=== PATIENT | male | born 1965 | race African-American/Black ===

== ENCOUNTER 2020-02-20 18:03 | Emergency (ER) | payer MEDICAID ==
[~2020-02-20] VITALS: Ht 177.8 cm; Wt 89.0 kg
[2020-02-20] MEDS ORDERED: ALBUTEROL (0.083%) 2.5MG/3ML NEB HHN STA (23:05)
[2020-02-20] MEDS ORDERED: IPRATROPIUM BROMIDE (0.02%) 0.5MG/2.5ML NEB HHN STA (23:05)
[2020-02-20] MEDS ORDERED: PREDNISONE 20MG TABLET PO ONE (23:15)
[2020-02-21 01:15] VITALS: BP 154/79
== END 2020-02-21 01:15 | disposition home or self-care (01) ==
LOC: ER 18:14
DX: I10 Essential (primary) hypertension (principal); J20.9 Acute bronchitis, unspecified; J44.0 Chronic obstructive pulmonary disease with (acute) lower respiratory infection; B20 Human immunodeficiency virus [HIV] disease
CPT/HCPCS: 71045; 94640; 99283; J7512; Z7610

== ENCOUNTER 2020-05-14 23:07 | Inpatient (IN) | payer MEDICAID ==
[~2020-05-14] VITALS: Ht 175.3 cm; Wt 83.5 kg
[2020-05-15] MEDS ORDERED: IPRATROPIUM BROMIDE (0.02%) 0.5MG/2.5ML NEB HHN STA (00:05)
[2020-05-15] MEDS ORDERED: PREDNISONE 20MG TABLET PO STA (00:05)
[2020-05-15 00:42] LABS: BASOPHILS % 0.5 % (0.0-2.0); EOSINOPHILS % 8.5 % (0.0-5.0); HEMATOCRIT. 38.4 % (42.0-52.0); HEMOGLOBIN. 12.9 g/dL (14.0-18.0); LYMPHOCYTES % 17.1 % (20.0-50.0); MEAN CORPUSCULAR HEMOGLOBIN 28.7 pg (28.0-32.0); MEAN CORPUSCULAR VOLUME 85.4 fL (80.0-94.0); MEAN PLATELET VOLUME 7.7 fl (7.4-10.4); NEUTROPHILS % 65.9 % (40.0-76.0); PLATELET 243 x1000/uL (130-400); RED BLOOD CELL COUNT 4.49 mill/uL (4.7-6.1); RED CELL DISTRIBUTION WIDTH 15.8 % (11.6-14.6)
[2020-05-15 00:51] LABS: CHLORIDE 100 mEq/L (98-107)
[2020-05-15] MEDS ORDERED: AZITHROMYCIN 500 MG in DEXT 5% WATER 250 ML IV NR (01:45)
[2020-05-15] MEDS ORDERED: CEFTRIAXONE 1 G PREMIX 50 ML IV NR (01:45)
[2020-05-15] MEDS: ALBUTEROL (0.083%) 2.5MG/3ML NEB HHN SCH ×2 (01:49→02:04)
[2020-05-15 08:10] VITALS: BP 129/90
[2020-05-15] MEDS ORDERED: DOCUSATE SODIUM 100MG CAPSULE PO PRN (08:30)
[2020-05-15] MEDS ORDERED: ACETAMINOPHEN 325MG TABLET PO PRN (08:30)
[2020-05-15] MEDS ORDERED: ALBUTEROL 6.7GM HFA INHALER ORI PRN (08:30)
[2020-05-15] MEDS ORDERED: HYDROCODONE/ACETAMINOPHEN 5/325MG TABLET PO PRN (08:30)
[2020-05-15] MEDS ORDERED: CLONIDINE 0.1MG TABLET PO PRN (08:30)
[2020-05-15] MEDS ORDERED: DIPHENHYDRAMINE 50MG/ML VIAL IV PRN (08:30)
[2020-05-15] MEDS ORDERED: LORAZEPAM 2MG/ML CPJ IV PRN (08:30)
[2020-05-15] MEDS ORDERED: MORPHINE SULFATE 2 MG/ML CPJ (NOT FOR IM USE) IV PRN (08:30)
[2020-05-15] MEDS ORDERED: MAGNESIUM/ALUMINUM HYDROXIDE/SIMETHICONE 30ML UDC PO PRN (08:30)
[2020-05-15] MEDS ORDERED: ONDANSETRON HCL 4MG/2ML INJ IV PRN (08:30)
[2020-05-15] MEDS: ENOXAPARIN 40MG/0.4ML SYR SUBCUT SCH (10:48)
[2020-05-15] MEDS ORDERED: ALBU6.7H9 INH (11:19)
[2020-05-15] MEDS ORDERED: QUET200T PO (11:19)
[2020-05-15 12:00] VITALS: BP 130/73
[2020-05-15] MEDS: SODIUM CHLORIDE 0.9% INJ 3ML FLUSH IVF SCH ×2 (13:13→22:03)
[2020-05-15] MEDS ORDERED: QUETIAPINE FUMARATE 50MG TABLET PO SCH (14:00)
[2020-05-15] MEDS: GUAIFENESIN 200MG/10ML SUGAR FREE UDC PO PRN ×2 (14:44→23:13)
[2020-05-15] MEDS: METHYLPREDNISOLONE SOD SUCC 125 MG/2 ML VIAL IV SCH ×3 (14:44→23:09)
[2020-05-15] MEDS: NICOTINE 14MG PATCH TD SCH (15:13)
[2020-05-15] MEDS: ALBUTEROL 6.7GM HFA INHALER ORI SCH ×2 (15:42→20:00)
[2020-05-15 15:58] LABS: *AMPHETAMINES SCREEN URINE NEGATIVE (NEGATIVE)
[2020-05-15 15:59] LABS: CANNABINOID URINE SCREEN NEGATIVE (NEGATIVE)
[2020-05-15 16:00] VITALS: BP 149/49
[2020-05-15 16:02] LABS: *BARBITURATES SCREEN URINE NEGATIVE (NEGATIVE)
[2020-05-15 16:03] LABS: *BENZODIAZEPINES SCREEN URINE NEGATIVE (NEGATIVE); *COCAINE SCREEN URINE PRESUMTIVE POSITIVE (NEGATIVE)
[2020-05-15 16:04] LABS: METHADONE URINE SCREEN NEGATIVE (NEGATIVE); OPIATES URINE SCREEN NEGATIVE (NEGATIVE)
[2020-05-15 16:07] LABS: PHENCYCLIDINE URINE SCREEN NEGATIVE (NEGATIVE)
[2020-05-15] MEDS: MONTELUKAST SODIUM 10MG TABLET PO SCH (17:36)
[2020-05-15 18:23] LABS: CREATINE KINASE 120 IU/L (39-308)
[2020-05-15 18:24] LABS: CREATINE KINASE MB FRACTION 3.9 ng/mL (0.5-3.6)
[2020-05-15 18:25] LABS: T4 FREE 0.77 ng/dL (0.76-1.46)
[2020-05-15 20:00] VITALS: BP 135/88
[2020-05-15] MEDS ORDERED: CEFTRIAXONE 1 G PREMIX 50 ML IV SCH (21:00)
[2020-05-15] MEDS ORDERED: GUAIFENESIN 600MG ER TABLET PO SCH (21:00)
[2020-05-15] MEDS: GUAIFENESIN 600MG ER TABLET PO SCH (22:03)
[2020-05-15] MEDS: FAMOTIDINE 20MG TABLET PO SCH (22:04)
[2020-05-15] MEDS ORDERED: DOLU1TAB2 PO (22:50)
[2020-05-15] MEDS ORDERED: AZITHROMYCIN 500 MG in DEXT 5% WATER 250 ML IV SCH (23:00)
[2020-05-15] MEDS: QUETIAPINE FUMARATE 50MG TABLET PO SCH (23:09)
[2020-05-16] VITALS: BP 131/97
[2020-05-16 00:43] LABS: CREATINE KINASE 98 IU/L (39-308)
[2020-05-16 00:45] LABS: CREATINE KINASE MB FRACTION 3.1 ng/mL (0.5-3.6)
[2020-05-16] MEDS: CEFTRIAXONE 1,000 MG in DEXTROSE 5% WATER 50 ML IV SCH (01:48)
[2020-05-16] MEDS: AZITHROMYCIN 500 MG in DEXT 5% WATER 250 ML IV SCH (01:49)
[2020-05-16 04:00] VITALS: BP 123/78
[2020-05-16] MEDS: SODIUM CHLORIDE 0.9% INJ 3ML FLUSH IVF SCH ×3 (05:21→20:14)
[2020-05-16] MEDS: GUAIFENESIN 200MG/10ML SUGAR FREE UDC PO PRN ×2 (05:21→20:14)
[2020-05-16] MEDS: METHYLPREDNISOLONE SOD SUCC 125 MG/2 ML VIAL IV SCH ×3 (05:21→17:27)
[2020-05-16 06:51] LABS: BASOPHILS % 0.1 % (0.0-2.0); HEMATOCRIT. 36.4 % (42.0-52.0); HEMOGLOBIN. 12.1 g/dL (14.0-18.0); LYMPHOCYTES % 10.5 % (20.0-50.0); MEAN CORPUSCULAR HEMOGLOBIN 28.7 pg (28.0-32.0); MEAN CORPUSCULAR VOLUME 85.9 fL (80.0-94.0); MEAN PLATELET VOLUME 8.1 fl (7.4-10.4); MONOCYTES % 3.1 % (2.0-8.0); NEUTROPHILS % 86.3 % (40.0-76.0); PLATELET 253 x1000/uL (130-400); RED BLOOD CELL COUNT 4.23 mill/uL (4.7-6.1)
[2020-05-16 07:03] LABS: CHLORIDE 105 mEq/L (98-107)
[2020-05-16 07:18] LABS: CREATINE KINASE 71 IU/L (39-308)
[2020-05-16 07:21] LABS: CREATINE KINASE MB FRACTION 2.3 ng/mL (0.5-3.6)
[2020-05-16 08:00] VITALS: BP 136/93
[2020-05-16] MEDS: ENOXAPARIN 40MG/0.4ML SYR SUBCUT SCH (08:44)
[2020-05-16] MEDS: GUAIFENESIN 600MG ER TABLET PO SCH ×2 (08:45→20:14)
[2020-05-16] MEDS: LORATADINE 10MG TABLET PO SCH (08:45)
[2020-05-16] MEDS: FAMOTIDINE 20MG TABLET PO SCH ×2 (08:45→20:14)
[2020-05-16] MEDS: NICOTINE 14MG PATCH TD SCH (08:45)
[2020-05-16] MEDS ORDERED: IPRATROPIUM/ALBUTEROL 0.5-3(2.5)MG/3ML NEB HHN PRN (10:45)
[2020-05-16 12:00] VITALS: BP 132/76
[2020-05-16] MEDS ORDERED: ALBU6.7H9 INH (14:17)
[2020-05-16] MEDS ORDERED: ALBU05 NEB (14:17)
[2020-05-16] MEDS: IPRATROPIUM/ALBUTEROL 0.5-3(2.5)MG/3ML NEB HHN SCH ×2 (14:24→21:12)
[2020-05-16] MEDS: MONTELUKAST SODIUM 10MG TABLET PO SCH (17:27)
[2020-05-16 20:00] VITALS: BP 148/97
[2020-05-16] MEDS: QUETIAPINE FUMARATE 50MG TABLET PO SCH (20:14)
[2020-05-16] MEDS ORDERED: LAMIVUDINE PO SCH (21:00)
[2020-05-16] MEDS ORDERED: DOLUTEGRAVIR SODIUM PO SCH (21:00)
[2020-05-16] MEDS ORDERED: [UNRECOGNIZED DRUG - OTHER] PO SCH (21:00)
[2020-05-17] VITALS: BP 135/89
[2020-05-17] MEDS: METHYLPREDNISOLONE SOD SUCC 125 MG/2 ML VIAL IV SCH ×3 (00:23→11:50)
[2020-05-17] MEDS: CEFTRIAXONE 1,000 MG in DEXTROSE 5% WATER 50 ML IV SCH (00:23)
[2020-05-17] MEDS: IPRATROPIUM/ALBUTEROL 0.5-3(2.5)MG/3ML NEB HHN SCH ×3 (01:47→15:46)
[2020-05-17] MEDS: AZITHROMYCIN 500 MG in DEXT 5% WATER 250 ML IV SCH (01:49)
[2020-05-17 04:00] VITALS: BP 140/81
[2020-05-17] MEDS: SODIUM CHLORIDE 0.9% INJ 3ML FLUSH IVF SCH (05:39)
[2020-05-17 08:00] VITALS: BP 144/97
[2020-05-17] MEDS: FAMOTIDINE 20MG TABLET PO SCH (08:34)
[2020-05-17] MEDS: LORATADINE 10MG TABLET PO SCH (08:34)
[2020-05-17] MEDS: GUAIFENESIN 600MG ER TABLET PO SCH (08:34)
[2020-05-17] MEDS: NICOTINE 14MG PATCH TD SCH (08:34)
[2020-05-17] MEDS: ENOXAPARIN 40MG/0.4ML SYR SUBCUT SCH (08:35)
[2020-05-17] MEDS: GUAIFENESIN 200MG/10ML SUGAR FREE UDC PO PRN (08:42)
[2020-05-17 12:00] VITALS: BP 135/90
[2020-05-17 13:27] VITALS: BP 135/90
[2020-05-17 16:39] LABS: % CD 3 POS. LYMPHOCYTES 51.3 % (57.5-86.2); % CD 4 POS. LYMPHOCYTES 18.4 % (30.8-58.5); ABSOLUTE CD 3 718 /uL (622-2402); ABSOLUTE CD 4 HELPER 258 /uL (359-1519); ABSOLUTE CD 8 SUPPRESSOR 462 /uL (109-897); ABSOLUTE LYMPHOCYTES 1.4 x10E3/uL (0.7-3.1); ABSOLUTE MONOCYTES 0.4 x10E3/uL (0.1-0.9); ABSOLUTE NEUTROPHILS 6.3 x10E3/uL (1.4-7.0); BASOPHILS 0 % (Not Estab.); CD4/CD8 RATIO 0.56 (0.92-3.72); HEMATOLOGY COMMENT Note: (.); HEMOGLOBIN 13.1 g/dL (13.0-17.7); LYMPHOCYTES 17 % (Not Estab.); MEAN CORPUSCULAR HEMOGLOBIN 28.2 pg (26.6-33.0); MEAN CORPUSCULAR VOLUME 88 fL (79-97); MONOCYTES 5 % (Not Estab.); NEUTROPHILS 77 % (Not Estab.); NUCLEATED RBC 1 % (0 - 0); PLATELETS 306 x10E3/uL (150-450); RBC 4.64 x10E6/uL (4.14-5.80); RED CELL DISTRIBUTION WIDTH 15.6 % (11.6-15.4); WBC 8.2 x10E3/uL (3.4-10.8)
== END 2020-05-17 16:08 | disposition home or self-care (01) | DRG 816 ==
LOC: ER 23:07 → 7WST 05-15 02:21 → ENRESERV 05-15 07:49 → 8WST 05-15 22:25
PROVIDERS: ADMIT Internal Medicine; ATTEND Internal Medicine
DX: T40.5X1A Poisoning by cocaine, accidental (unintentional), initial encounter (principal); J96.00 Acute respiratory failure, unspecified whether with hypoxia or hypercapnia; J45.901 Unspecified asthma with (acute) exacerbation; E87.2 Acidosis; E44.1 Mild protein-calorie malnutrition; D72.10 Eosinophilia, unspecified; F17.210 Nicotine dependence, cigarettes, uncomplicated; J68.0 Bronchitis and pneumonitis due to chemicals, gases, fumes and vapors; F14.10 Cocaine abuse, uncomplicated; F12.10 Cannabis abuse, uncomplicated; D64.9 Anemia, unspecified; F25.9 Schizoaffective disorder, unspecified; Z20.822 Contact with and (suspected) exposure to COVID-19; F31.9 Bipolar disorder, unspecified; Z68.27 Body mass index [BMI] 27.0-27.9, adult; Z71.6 Tobacco abuse counseling; Z71.51 Drug abuse counseling and surveillance of drug abuser; Y92.89 Other specified places as the place of occurrence of the external cause; Z79.899 Other long term (current) drug therapy
CPT/HCPCS: 36415; 71045; 80053; 80061; 80305; 82550; 82553; 83036; 83605; 83880; 84145; 84439; 84443; 84484; 85025; 85379; 86359; 86360; 93005; 93306; 94640; 96365; 99285; J0456; J0696; J1650; J2930; J7060; J7512; U0003

== ENCOUNTER 2020-06-07 00:58 | Emergency (ER) | payer MEDICAID, OTHER ==
[~2020-06-07] VITALS: Ht 177.8 cm; Wt 77.0 kg
[~2020-06-07 00:58] MED LIST: ALBU05 NEB; ALBU6.7H9 INH; DOLU1TAB2 PO; QUET200T PO
[2020-06-07] MEDS ORDERED: IPRATROPIUM BROMIDE (0.02%) 0.5MG/2.5ML NEB HHN STA (01:14)
[2020-06-07] MEDS ORDERED: PREDNISONE 20MG TABLET PO STA (01:14)
[2020-06-07] MEDS ORDERED: DOXYCYCLINE HYCLATE 100MG CAPSULE PO ONE (01:15)
[2020-06-07 01:30] LABS: BASOPHILS % 0.5 % (0.0-2.0); EOSINOPHILS % 6.3 % (0.0-5.0); HEMATOCRIT. 40.4 % (42.0-52.0); HEMOGLOBIN. 13.2 g/dL (14.0-18.0); LYMPHOCYTES % 27.2 % (20.0-50.0); MEAN CORPUSCULAR HEMOGLOBIN 28.4 pg (28.0-32.0); MEAN CORPUSCULAR VOLUME 86.8 fL (80.0-94.0); MEAN PLATELET VOLUME 7.1 fl (7.4-10.4); MONOCYTES % 5.9 % (2.0-8.0); NEUTROPHILS % 60.1 % (40.0-76.0); PLATELET 198 x1000/uL (130-400); RED BLOOD CELL COUNT 4.66 mill/uL (4.7-6.1); RED CELL DISTRIBUTION WIDTH 16.9 % (11.6-14.6)
[2020-06-07 01:34] LABS: CHLORIDE 105 mEq/L (98-107)
[2020-06-07] MEDS: ALBUTEROL (0.083%) 2.5MG/3ML NEB HHN SCH ×3 (01:41→02:44)
[2020-06-07] MEDS ORDERED: P20 MT (03:49)
[2020-06-07] MEDS ORDERED: ALBU6.7H9 INH (03:49)
[2020-06-07] MEDS ORDERED: DOXY150T9 MT (03:49)
[2020-06-07 04:15] VITALS: BP 122/88
== END 2020-06-07 04:39 | disposition home or self-care (01) ==
LOC: ER 00:58
DX: J45.901 Unspecified asthma with (acute) exacerbation (principal); J18.9 Pneumonia, unspecified organism; F17.200 Nicotine dependence, unspecified, uncomplicated; B20 Human immunodeficiency virus [HIV] disease
CPT/HCPCS: 36415; 71045; 80053; 85025; 93005; 94640; 99285; J7512; Z7610

== ENCOUNTER 2020-06-27 04:26 | Inpatient (IN) | payer OTHER ==
[~2020-06-27] VITALS: Ht 175.3 cm; Wt 93.2 kg
[~2020-06-27 04:26] MED LIST changes: +DOXY150T9 MT; +P20 MT
[2020-06-27] MEDS ORDERED: IPRATROPIUM BROMIDE (0.02%) 0.5MG/2.5ML NEB HHN STA (04:39)
[2020-06-27] MEDS ORDERED: METHYLPREDNISOLONE SOD SUCC 125 MG/2 ML VIAL IV STA (04:39)
[2020-06-27] MEDS ORDERED: MAGNESIUM 2 G PREMIX 50 ML IV ONE (04:45)
[2020-06-27] MEDS: ALBUTEROL (0.083%) 2.5MG/3ML NEB HHN SCH ×3 (04:53→06:09)
[2020-06-27 04:57] LABS: BASOPHILS % 0.8 % (0.0-2.0); EOSINOPHILS % 7.1 % (0.0-5.0); HEMATOCRIT. 37.7 % (42.0-52.0); HEMOGLOBIN. 12.5 g/dL (14.0-18.0); LYMPHOCYTES % 22.1 % (20.0-50.0); MEAN CORPUSCULAR VOLUME 87.1 fL (80.0-94.0); MEAN PLATELET VOLUME 7.5 fl (7.4-10.4); MONOCYTES % 7.4 % (2.0-8.0); NEUTROPHILS % 62.6 % (40.0-76.0); PLATELET 249 x1000/uL (130-400); RED BLOOD CELL COUNT 4.33 mill/uL (4.7-6.1); RED CELL DISTRIBUTION WIDTH 16.2 % (11.6-14.6)
[2020-06-27 05:05] LABS: CHLORIDE 105 mEq/L (98-107)
[2020-06-27] MEDS ORDERED: IPRATROPIUM/ALBUTEROL 0.5-3(2.5)MG/3ML NEB HHN PRN (08:30)
[2020-06-27] MEDS ORDERED: POTASSIUM CHLORIDE 20MEQ TABLET SR PO NR (09:00)
[2020-06-27] MEDS: FAMOTIDINE 20MG TABLET PO SCH ×2 (09:17→21:26)
[2020-06-27] MEDS: LORATADINE 10MG TABLET PO SCH (09:45)
[2020-06-27] MEDS: NICOTINE 14MG PATCH TD SCH (09:45)
[2020-06-27] MEDS: METHYLPREDNISOLONE SOD SUCC 40 MG/ML VIAL IV SCH ×2 (12:15→21:26)
[2020-06-27] MEDS: IPRATROPIUM/ALBUTEROL 0.5-3(2.5)MG/3ML NEB HHN SCH ×2 (12:54→20:21)
[2020-06-27 16:20] VITALS: BP 138/78
[2020-06-27 16:38] VITALS: BP 129/81
[2020-06-27] MEDS: MONTELUKAST SODIUM 10MG TABLET PO SCH (18:33)
[2020-06-27 18:52] VITALS: BP 134/67
[2020-06-27 20:00] VITALS: BP 134/80
[2020-06-27] MEDS ORDERED: MEDICATION NOT ON FORMULARY EA (Quetiapine Fumarate (Seroquel) 200 MG) PO SCH (20:45)
[2020-06-27] MEDS: QUETIAPINE FUMARATE 50MG TABLET PO SCH (21:26)
[2020-06-28] VITALS: BP 138/94
[2020-06-28] MEDS: IPRATROPIUM/ALBUTEROL 0.5-3(2.5)MG/3ML NEB HHN SCH ×4 (01:08→19:52)
[2020-06-28 04:00] VITALS: BP 131/59
[2020-06-28] MEDS: METHYLPREDNISOLONE SOD SUCC 40 MG/ML VIAL IV SCH ×3 (05:06→22:12)
[2020-06-28 08:08] VITALS: BP 122/78
[2020-06-28] MEDS: FAMOTIDINE 20MG TABLET PO SCH ×2 (09:22→21:08)
[2020-06-28] MEDS: LORATADINE 10MG TABLET PO SCH (09:22)
[2020-06-28] MEDS: NICOTINE 14MG PATCH TD SCH (09:22)
[2020-06-28] MEDS ORDERED: TERBUTALINE SULFATE 1MG/ML VIAL SUBCUT SCH (12:00)
[2020-06-28 12:15] VITALS: BP 130/90
[2020-06-28] MEDS: BENZONATATE 100MG CAPSULE PO PRN (12:55)
[2020-06-28 16:05] VITALS: BP 120/83
[2020-06-28] MEDS: MONTELUKAST SODIUM 10MG TABLET PO SCH (17:27)
[2020-06-28 20:20] VITALS: BP 149/98
[2020-06-28] MEDS: QUETIAPINE FUMARATE 50MG TABLET PO SCH (21:08)
[2020-06-29] VITALS (7 sets, daily range): BP systolic 112–136; BP diastolic 65–96
[2020-06-29] MEDS: IPRATROPIUM/ALBUTEROL 0.5-3(2.5)MG/3ML NEB HHN SCH ×4 (00:09→21:40)
[2020-06-29] MEDS: METHYLPREDNISOLONE SOD SUCC 40 MG/ML VIAL IV SCH (05:52)
[2020-06-29] MEDS: FAMOTIDINE 20MG TABLET PO SCH ×2 (08:22→20:51)
[2020-06-29] MEDS: NICOTINE 14MG PATCH TD SCH (08:22)
[2020-06-29] MEDS: LORATADINE 10MG TABLET PO SCH (08:23)
[2020-06-29] MEDS ORDERED: DOVATO PO SCH (09:00)
[2020-06-29] MEDS: METHYLPREDNISOLONE SOD SUCC 125 MG/2 ML VIAL IV SCH ×2 (12:41→17:13)
[2020-06-29 16:19] LABS: BASOPHILS % 0.5 % (0.0-2.0); HEMATOCRIT. 42.8 % (42.0-52.0); HEMOGLOBIN. 13.9 g/dL (14.0-18.0); LYMPHOCYTES % 9.9 % (20.0-50.0); MEAN CORPUSCULAR HEMOGLOBIN 28.4 pg (28.0-32.0); MEAN CORPUSCULAR VOLUME 87.6 fL (80.0-94.0); MEAN PLATELET VOLUME 8.2 fl (7.4-10.4); NEUTROPHILS % 86.6 % (40.0-76.0); PLATELET 284 x1000/uL (130-400); RED BLOOD CELL COUNT 4.88 mill/uL (4.7-6.1); RED CELL DISTRIBUTION WIDTH 16.2 % (11.6-14.6)
[2020-06-29 16:28] LABS: CHLORIDE 100 mEq/L (98-107)
[2020-06-29] MEDS: MONTELUKAST SODIUM 10MG TABLET PO SCH (17:13)
[2020-06-29] MEDS: QUETIAPINE FUMARATE 50MG TABLET PO SCH (20:51)
[2020-06-30 00:17] VITALS: BP 136/87
[2020-06-30] MEDS: IPRATROPIUM/ALBUTEROL 0.5-3(2.5)MG/3ML NEB HHN SCH ×3 (02:19→12:32)
[2020-06-30] MEDS: METHYLPREDNISOLONE SOD SUCC 125 MG/2 ML VIAL IV SCH ×3 (02:22→12:38)
[2020-06-30 04:30] VITALS: BP 140/74
[2020-06-30 08:00] VITALS: BP 128/88
[2020-06-30] MEDS: FAMOTIDINE 20MG TABLET PO SCH (08:29)
[2020-06-30] MEDS: NICOTINE 14MG PATCH TD SCH (08:29)
[2020-06-30] MEDS: LORATADINE 10MG TABLET PO SCH (08:29)
[2020-06-30] MEDS: BENZONATATE 100MG CAPSULE PO PRN (08:37)
[2020-06-30] MEDS ORDERED: THEOPHYLLINE ANHYDROUS 80 MG/15 ML 120ML PO SCH (12:00)
[2020-06-30 13:11] VITALS: BP 128/88
== END 2020-06-30 17:25 | disposition home or self-care (01) | DRG 816 ==
LOC: ER 04:26 → ENRESERV 15:22 → 6WST 16:14
PROVIDERS: ADMIT Internal Medicine; ATTEND Internal Medicine
DX: T40.5X1A Poisoning by cocaine, accidental (unintentional), initial encounter (principal); J96.00 Acute respiratory failure, unspecified whether with hypoxia or hypercapnia; J68.0 Bronchitis and pneumonitis due to chemicals, gases, fumes and vapors; D72.10 Eosinophilia, unspecified; F14.10 Cocaine abuse, uncomplicated; E87.6 Hypokalemia; F12.90 Cannabis use, unspecified, uncomplicated; F17.210 Nicotine dependence, cigarettes, uncomplicated; Z79.2 Long term (current) use of antibiotics; Z79.899 Other long term (current) drug therapy; Y92.89 Other specified places as the place of occurrence of the external cause; Z71.51 Drug abuse counseling and surveillance of drug abuser; Z71.6 Tobacco abuse counseling; Z21 Asymptomatic human immunodeficiency virus [HIV] infection status
CPT/HCPCS: 36415; 71045; 80048; 80053; 83880; 84484; 85025; 93005; 94640; 99291; J2920; J2930; J3105; J3475

== ENCOUNTER 2022-04-25 12:45 | Emergency (ER) | payer MEDICAID, OTHER ==
[~2022-04-25] VITALS: Ht 175.3 cm; Wt 88.0 kg
[~2022-04-25 12:45] MED LIST changes: +ALBU6.7H3 INH; -ALBU6.7H9 INH
[2022-04-25 12:50] VITALS: BP 170/82
[2022-04-25] MEDS ORDERED: METHOCARBAMOL 750MG TABLET PO SCH (14:00)
[2022-04-25] MEDS ORDERED: LIDOCAINE 5% PATCH TOP SCH (14:00)
[2022-04-25] MEDS ORDERED: KETOROLAC 60MG/2ML VIAL IM ONE (14:00)
[2022-04-25] MEDS ORDERED: ACETAMINOPHEN 325MG TABLET PO ONE (14:00)
[2022-04-25] MEDS ORDERED: METH-653 MT (15:07)
[2022-04-25] MEDS ORDERED: IBUP-2028 MT (15:07)
[2022-04-25] MEDS ORDERED: LIDO1ADH23 TP (15:07)
== END 2022-04-25 21:10 | disposition home or self-care (01) ==
LOC: ER 17:24
DX: S46.912A Strain of unspecified muscle, fascia and tendon at shoulder and upper arm level, left arm, initial encounter (principal); W06.XXXA Fall from bed, initial encounter; Y93.89 Activity, other specified; Y92.89 Other specified places as the place of occurrence of the external cause; Y99.8 Other external cause status; J45.909 Unspecified asthma, uncomplicated; F14.10 Cocaine abuse, uncomplicated; Z79.899 Other long term (current) drug therapy
CPT/HCPCS: 73000; 73030; 96372; 99284; J1885; Z7610